=== PATIENT | female | born 1945 | race Caucasian/White ===

== ENCOUNTER 2020-12-23 09:21 | Emergency (ER) | payer MEDICARE ==
[~2020-12-23 09:21] MED LIST: ASPIR 8181 MG PO; CHOLESTEROL PILL; FLUID PILL; NAPROXEN500 MG PO; PREDNISONE 20MG20 MG PO; TENORMIN50 MG PO; [UNRECOGNIZED DRUG - REMARK]
[2020-12-23 13:16] LABS: BASOPHIL 0.7 % (0-2); EOSINOPHIL 1.9 % (0-7); HCT 45.7 % (37.0-47.0); HGB 14.4 g/dl (12.5-16.0); LYMPHOCYTE 16.2 % (15-48); MCH 28.1 pg (25.0-31.0); MCHC 31.5 g/dL (32.0-36.0); MCV 89.3 fL (78.0-100.0); MONOCYTE 5.6 % (0-12); NRBC 0; PLT 368 K/uL (150-400); RBC 5.12 M/uL (4.20-5.40); RDW 14.7 % (11.5-14.0); WBC 10.4 K/uL (4.0-10.5)
[2020-12-23 13:26] LABS: BILIRUBIN NEGATIVE (NEGATIVE); BLOOD TRACE-INTACT Ery/uL (NEGATIVE); CLARITY HAZY (CLEAR); COLOR YELLOW (YELLOW); GLUCOSE (U) NORMAL (NORMAL); LEUKOCYTES 1+ Leu/uL (NEGATIVE); NITRITE POSITIVE (NEGATIVE); PROTEIN TRACE (LOW) mg/dL (NEGATIVE); SPECIFIC GRAVITY 1.015 (1.001-1.030)
[2020-12-23 13:31] LABS: BUN/CREAT RATIO (CALC) 18.2 RATIO; CREATININE 0.66 mg/dL (0.51-0.95); POTASSIUM 3.3 mmol/L (3.5-5.1)
[2020-12-23 13:32] LABS: BACTERIA 3+; MUCOUS MODERATE; URINARY RBC RARE
[2020-12-23] MEDS ORDERED: AUGMENTIN 875-1 EACH PO (13:33)
== END 2020-12-23 13:43 | disposition home or self-care (01) ==
LOC: FER 09:21
PROVIDERS: Nurse Practitioner Family
DX: N39.0 Urinary tract infection, site not specified (principal); M51.36 Other intervertebral disc degeneration, lumbar region; E11.9 Type 2 diabetes mellitus without complications; I10 Essential (primary) hypertension; Z98.890 Other specified postprocedural states
CPT/HCPCS: 36415; 72100; 80048; 81001; 85025; 87076; 87088; 87186